=== PATIENT | female | born 1990 | race Two or more races ===

== ENCOUNTER 2025-01-04 18:53 | Outpatient (CLI) | payer OTHER ==
[~2025-01-04] VITALS: Ht 175.3 cm; Wt 115.2 kg
[2025-01-04 18:48] VITALS: BP 123/80; O2SAT 97
[2025-01-04 19:15] LABS: BASO % 0.3 % (0.1-1.2); EOS # 0.09 (0.04-0.54); EOS % 0.5 % (0.7-7.0); LYMPH # 1.68 (1.18-3.74); LYMPH % 9.6 % (19.3-53.1); MEAN PLATELET VOLUME 10.10 fl (9.4-12.4); MONO # 1.35 (0.24-0.82); MONO % 7.7 % (4.7-12.5); NEUT # 14.17 (1.56-6.13); NEUT % 81.1 % (34.0-71.1); RED CELL DISTRIBUTION WIDTH 13.1 % (11.6-14.4)
[2025-01-04 19:17] LABS: URINE APPEARANCE Cloudy; URINE BACTERIA 514.7 uL (0.0-1933); URINE BILIRRUBIN Negative (NEGATIVE); URINE BLOOD Large; URINE COLOR Dark Yellow; URINE EPITHELIAL CELLS 14.2 uL (0.0-38.8); URINE GLUCOSE Negative (NEGATIVE); URINE LEUKOCYTE Negative; URINE NITRATE Negative; URINE PROTEIN 30 (NEGATIVE); URINE RBC 296.2 uL (0.0-20.8); URINE UROBILINOGEN 1.0 E.U./dl; URINE WBC 18.2 uL (0.0-23.2)
[2025-01-04 19:19] LABS: URINE CAST 0.29 uL (0.0-1.40); URINE KETONE 40 (NEGATIVE)
[2025-01-04 19:47] LABS: ALT/SGPT 23.0 U/L (12-78); AST/SGOT 17.0 U/L (15-37); BILIRUBIN TOTAL 0.45 mg/dL (0.3-1.2); BUN CREA RATIO 13.0 (7.0-25.0); CREATININE SERUM 0.53 mg/dL (0.55-1.02); GFR 130.53; GLOBULINA 3.2 G/DL (2.4-3.5); GLUCOSE FASTING 98.0 mg/dL (65-100); OSMOLALITY SERUM 275.0 MOSM/KG (275-295)
[2025-01-04 20:50] VITALS: BP 129/81; O2SAT 96
[2025-01-04] MEDS ORDERED: ACETAMINOPHEN 500 MG GEL..CAP PO PRN (21:30)
[2025-01-04 23:10] VITALS: BP 110/65
[2025-01-05 03:41] VITALS: BP 107/70
[2025-01-05 07:26] VITALS: BP 116/74
[2025-01-05 10:11] VITALS: BP 114/74
== END 2025-01-05 10:17 | disposition home or self-care (01) ==
LOC: OBS/DEL 18:53
PROVIDERS: ATTEND Obstetrics & Gynecology
DX: O26.892 Other specified pregnancy related conditions, second trimester (principal); Z3A.15 15 weeks gestation of pregnancy; R10.2 Pelvic and perineal pain